=== PATIENT | male | born 1990 | race Caucasian/White ===

== ENCOUNTER 2017-11-21 20:19 | Emergency (ER) | payer SELFPAY ==
[2017-11-21] MEDS ORDERED: IBUPROFEN 600 MG TABLET ONE (21:07)
== END 2017-11-21 22:03 | disposition home or self-care (01) ==
LOC: EDH 20:19
DX: S61.411A Laceration without foreign body of right hand, initial encounter (principal); Z72.0 Tobacco use; W11.XXXA Fall on and from ladder, initial encounter; Y93.89 Activity, other specified; Y92.69 Other specified industrial and construction area as the place of occurrence of the external cause; Y99.8 Other external cause status
CPT/HCPCS: 73090; 73130